=== PATIENT | male | born 1970 | race African-American/Black ===

== ENCOUNTER 2017-05-23 12:53 | Emergency (ER) | payer OTHER ==
[~2017-05-23] VITALS: Ht 182.9 cm; Wt 97.3 kg
[~2017-05-23 12:53] MED LIST: ALBU0.086 INH; ALBU6.7H INH; ASPI81 PO; CARV3.125 PO; CLON0.2T PO; DICL50 PO; ENAL5TAB98 PO; GLYB2.5T3 PO; IMDU30TA PO; METF-324 PO; NORV2.5T11 PO
[2017-05-23 12:56] VITALS: BP 146/90; PULSE 91; RESP 15; TEMP 98; O2SAT 97
--- NOTE | 2017-05-23 14:07 | RADRPT ---
EXAM DATE/TIME: 05/23/2017 13:41 [facility] COMPARISON: No previous studies available for comparison. INDICATIONS : Chest pain at his pacemaker site and it runs down his left shoulder MEDICAL HISTORY : SURGICAL HISTORY : Pacemaker. ENCOUNTER: Initial ACUITY: 3 days PAIN SCORE: 8/10 LOCATION: Left chest FINDINGS: Dual-lead AICD device with leads projecting over the right atrium and right ventricle. Leads are summer sly intact. Lungs are clear. Cardiomediastinal contours are within normal limits. Bony thorax is inta ct. CONCLUSION: 1. No acute cardiopulmonary disease. Andrew Meyers MD on May 23, 2017 at 14:04 Board Certified Radiologist. This report was verified electronically.
[2017-05-23 17:07] VITALS: BP 142/93; PULSE 79; RESP 17; O2SAT 99
[2017-05-23] MEDS ORDERED: ONDANSETRON HCL 4 MG/2 ML VIAL IV PUSH ONE (17:15)
[2017-05-23] MEDS ORDERED: MORPHINE SULFATE 2 MG/ML INJ IV PUSH ONE (17:15)
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
[2017-05-23 17:46] LABS: BASOPHIL # 0.1 TH/MM3 (0-0.2); BASOPHIL % 1.1 % (0.0-2.0); EOSINOPHIL # 0.4 TH/MM3 (0-0.4); EOSINOPHIL % 4.4 % (0.0-4.0); HEMATOCRIT 38.9 % (39.0-51.0); HEMOGLOBIN 13.2 GM/DL (13.0-17.0); LYMPH % 29.7 % (9.0-44.0); LYMPHOCYTE # 2.6 TH/MM3 (1.0-4.8); MEAN CELL VOLUME 91.9 FL (80.0-100.0); MEAN CORPUSCULAR HGB CONC 33.8 % (32.0-36.0); MEAN PLATELET VOLUME 9.1 FL (7.0-11.0); MONO % 8.1 % (0.0-8.0); MONOCYTE # 0.7 TH/MM3 (0-0.9); NEUT % 56.7 % (16.0-70.0); PLATELET COUNT 298 TH/MM3 (150-450); RED BLOOD COUNT 4.24 MIL/MM3 (4.50-5.90); RED CELL DISTRIBUTION WIDTH 13.1 % (11.6-17.2); WHITE BLOOD COUNT 8.9 TH/MM3 (4.0-11.0)
--- NOTE | 2017-05-23 18:02 | RADRPT ---
EXAM DATE/TIME: 05/23/2017 17:37 [facility] COMPARISON: No previous studies available for comparison. INDICATIONS : Left shoulder pain with no known injury. MEDICAL HISTORY : None. SURGICAL HISTORY : None. ENCOUNTER: Initial ACUITY: 3 days PAIN SCORE: 10/10 LOCATION: Left shoulder. FINDINGS: Two view examination of the left shoulder demonstrates no evidence of fracture or dislocation. Calcif ic density near the greater tuberosity is characteristic of a mild calcific tendinopathy. Glenohumera l articulation is maintained. Normal acromiohumeral interval. Left subclavian bipolar pacer. CONCLUSION: 1. Plain film findings characteristic of a mild calcific tendinopathy. 2. No significant degenerative changes or fracture. Vinny Powell MD on May 23, 2017 at 17:58 Board Certified Radiologist. This report was verified electronically.
[2017-05-23 18:05] LABS: BICARBONATE 30.7 MEQ/L (21.0-32.0); BLOOD UREA NITROGEN 12 MG/DL (7-18); CHLORIDE 105 MEQ/L (98-107); CREATININE 1.18 MG/DL (0.60-1.30); GLOMERULAR FILTRATION RATE 80 ML/MIN (>89); GLUCOSE,RANDOM 79 MG/DL (74-106); MAGNESIUM 2.2 MG/DL (1.5-2.5); SODIUM (NA) 142 MEQ/L (136-145)
[2017-05-23 18:07] LABS: TROPONIN I LESS THAN 0.02 NG/ML (0.02-0.05)
[2017-05-23] MEDS ORDERED: CYCL10TA PO (18:40)
[2017-05-23] MEDS ORDERED: IBUP-232 PO (18:40)
--- NOTE | 2017-05-23 21:07 | EKG ---
Date Performed: 05/23/2017 Time Performed: 17:53:28 PTAGE: 46 years EKG: Sinus rhythm NORMAL ECG NO PREVIOUS TRACING DOCTOR: Vaibhav Hairston Interpretating Date/Time 05/23/2017 21:06:51
== END 2017-05-23 19:41 | disposition home or self-care (01) ==
LOC: NEPC 12:53
DX: M75.32 Calcific tendinitis of left shoulder (principal); I11.0 Hypertensive heart disease with heart failure; I50.9 Heart failure, unspecified; Z95.810 Presence of automatic (implantable) cardiac defibrillator; Z72.0 Tobacco use
CPT/HCPCS: 71046; 73030; 80048; 82550; 82552; 83735; 84484; 85025; 85610; 85730; 93005; 96374; 96375; 99285; J2270; J2405